=== PATIENT | female | born 1970 | race Caucasian/White ===

== ENCOUNTER 2018-03-13 17:53 | Emergency (ER) | payer BC ==
[~2018-03-13] VITALS: Ht 167.6 cm; Wt 100.0 kg
[~2018-03-13 17:53] MED LIST: ARIP10TA15 PO; CALC-793 PO; DULO60CA34 PO; LEVE250T4 PO; LORA1TAB PO; OXYB5TAB11 PO; PANT-47 PO; PANT40TA4 PO; THY60T PO; [UNRECOGNIZED DRUG - CODE] IV
[2018-03-13] MEDS ORDERED: MORPHINE 2MG in 2ml NS syringe IV PRN (19:15)
[2018-03-13] MEDS ORDERED: morphine 4 MG/ML inj SYRINge IV ONE ×3 (19:15→21:55)
[2018-03-13] MEDS ORDERED: ondansetron/PF 4mg/2ml inj IV ONE (19:45)
[2018-03-13] MEDS ORDERED: fentaNYL/PF 50MCG/1 ML 2ML syringe IV ONE (19:45)
[2018-03-13] MEDS ORDERED: normal saline 1000ML IV soln IVB ONE (19:45)
[2018-03-13] MEDS ORDERED: proCHLORperazine 10 MG/2 ml inj IV ONE (19:45)
[2018-03-13] MEDS ORDERED: methylPREDNISolone sod succ 125mg/2ml vial IV ONE (19:45)
[2018-03-13] MEDS ORDERED: HYDROmorphone 2mg tablet PO ONE (19:45)
[2018-03-13] MEDS ORDERED: diphenhydrAMINE 50 mg/ml inj IV ONE (19:45)
[2018-03-13] MEDS ORDERED: METHYLPREDNISOLONE SOD SUCC IV ONE (20:10)
[2018-03-13] MEDS ORDERED: NORMAL SALINE IV ONE (20:10)
[2018-03-13 20:22] LABS: BASOPHILS % (AUTO) 0.1 % (0-1); EOSINOPHILS # (AUTO) 0.1 X10'3 (0-0.9); EOSINOPHILS % (AUTO) 0.8 % (0-6); HEMATOCRIT 33.3 % (35.0-45.0); LYMPHOCYTES % (AUTO) 9.2 % (21-51); MEAN CORPUSCULAR HEMOGLOBIN 24.3 PG (27.0-31.0); MEAN CORPUSCULAR VOLUME 73.8 FL (78-98); MEAN PLATELET VOLUME 9.3 FL (7.4-10.4); MONOCYTES # (AUTO) 0.9 X10'3 (0-0.9); MONOCYTES % (AUTO) 7.7 % (2-12); NEUTROPHILS # (AUTO) 9.3 X10'3 (1.8-7.7); NEUTROPHILS % (AUTO) 82.2 % (42-75); PLATELET COUNT 331 X10'3 (140-440); RED BLOOD COUNT 4.51 X10'6 (4.20-5.60); RED CELL DISTRIBUTION WIDTH 16.2 % (11.5-14.5); WHITE BLOOD COUNT 11.3 X10'3 (4.5-11.0)
[2018-03-13 20:34] LABS: INR 0.9 INR; PARTIAL THROMBOPLASTIN TIME 26 SECONDS (22-32); PROTHROMBIN TIME 9.6 SECONDS (9.0-12.0)
[2018-03-13 20:37] LABS: ALANINE AMINOTRANSFERASE 30 U/L (12-78); ALBUMIN 3.6 G/DL (3.4-5.0); ALKALINE PHOSPHATASE 92 IU/L (46-116); ANION GAP 7 (8-16); ASPARTATE AMINO TRANSFERASE 19 U/L (10-37); BILIRUBIN,TOTAL 0.2 MG/DL (0.1-1.0); BLOOD UREA NITROGEN 12 MG/DL (7-18); BUN/CREATININE RATIO 13.6 (6.6-38.0); CALCIUM 8.5 MG/DL (8.5-10.1); CHLORIDE 104 MMOL/L (99-107); CREATININE 0.88 MG/DL (0.40-0.90); GLUCOSE 109 MG/DL (70-104); MAGNESIUM 2.1 MG/DL (1.5-2.4); POTASSIUM 4.1 MMOL/L (3.5-5.1); SODIUM 139 MMOL/L (135-145); TOTAL CARBON DIOXIDE 27.7 MMOL/L (24-32); TOTAL PROTEIN 7.2 G/DL (6.4-8.2); eGFR 69 ML/MIN
[2018-03-13] MEDS ORDERED: PRED20TA PO (21:33)
[2018-03-13] MEDS ORDERED: [UNRECOGNIZED DRUG - CODE] IV (21:33)
[2018-03-13] MEDS ORDERED: PANT-47 PO (21:33)
[2018-03-13] MEDS ORDERED: ketorolac trometh. 30mg/ml inj. IV ONE (21:55)
[2018-03-13] MEDS ORDERED: SUMAtriptan succ. 6 MG/0.5ml vial SQ ONE (21:55)
[2018-03-13 22:14] LABS: CLARITY,URINE CLEAR (Clear); COLOR,URINE YELLOW (Yellow); GLUCOSE, URINE 100 mg/dl (Neg); KETONES,URINE NEGATIVE (Neg); LEUKOCYTE ESTERASE ,URINE TRACE (Neg); NITRITES, URINE NEGATIVE (Neg); OCCULT BLOOD,URINE NEGATIVE (Neg); PH,URINE 6.5 (4.8-8.0); PROTEIN,URINE NEGATIVE (Neg); UA COLLECTION TYPE CLN CATCH MIDSTREAM; UROBILINOGEN,URINE 0.2 E.U/dL (0.2-1.0)
[2018-03-13 22:23] LABS: WBC,URINE 0-4 /HPF (0-4)
[2018-03-13 22:24] LABS: BACTERIA,URINE 1+ /HPF (Neg); MUCUS STRANDS FEW /LPF (Neg); RBC,URINE 0-2 /HPF (0-2); SQUAMOUS EPITHELIAL CELL,UR MODERATE /LPF (FEW); YEAST FEW /HPF (NEGATIVE)
[2018-03-13 23:02] VITALS: BP 136/69
== END 2018-03-13 23:08 | disposition home or self-care (01) ==
LOC: ER 17:53
DX: G35 Multiple sclerosis (principal); G43.909 Migraine, unspecified, not intractable, without status migrainosus; Z79.899 Other long term (current) drug therapy
CPT/HCPCS: 36415; 80053; 81001; 83605; 83735; 85025; 85610; 85651; 85730; 87040; 87077; 87088; 87186; 96372; 96374; 96375; 96376; 99284; J1200; J1885; J2270; J2405; J2930; J3010; J3030; J7030; J0780

== ENCOUNTER 2019-08-09 14:12 | Inpatient (IN) | payer BC ==
[~2019-08-09] VITALS: Ht 167.6 cm; Wt 109.0 kg
[~2019-08-09 14:12] MED LIST changes: -LEVE250T4 PO; -OXYB5TAB11 PO; +OXYB5TAB16 PO; -PANT-47 PO; +ZOLP10TA5 PO; -[UNRECOGNIZED DRUG - CODE] IV
[2019-08-09] MEDS ORDERED: methylPREDNISolone sod succ 125mg/2ml vial IV ONE (15:45)
[2019-08-09] MEDS ORDERED: ondansetron/PF 4mg/2ml inj IV ONE ×2 (15:45→16:50)
[2019-08-09] MEDS ORDERED: HYDROmorphone 1 mg/ml syringe IV ONE ×3 (15:45→19:15)
[2019-08-09] MEDS ORDERED: normal saline 1000ML IV soln IVB ONE (15:45)
--- NOTE | 2019-08-09 16:10 | NUR ---
PT MOVED FROM WC2 TO BED 16 VIA WHEELCHAIR BY ROSALBA BRIONES
[2019-08-09 16:14] LABS: BASOPHILS # (AUTO) 0.1 X10'3 (0-0.2); BASOPHILS % (AUTO) 1.4 % (0-1); EOSINOPHILS # (AUTO) 0.4 X10'3 (0-0.9); EOSINOPHILS % (AUTO) 5.4 % (0-6); HEMATOCRIT 37.2 % (35.0-45.0); HEMOGLOBIN 12.1 g/dl (12.0-16.0); LYMPHOCYTES # (AUTO) 1.5 X10'3 (1.1-4.8); LYMPHOCYTES % (AUTO) 21.2 % (21-51); MEAN CORPUSCULAR HEMOGLOBIN 24.8 PG (27.0-31.0); MEAN CORPUSCULAR HGB CONC 32.4 g/dL (33.0-36.5); MEAN CORPUSCULAR VOLUME 76.4 FL (78-98); MEAN PLATELET VOLUME 8.8 FL (7.4-10.4); MONOCYTES # (AUTO) 0.7 X10'3 (0-0.9); MONOCYTES % (AUTO) 10.2 % (2-12); NEUTROPHILS # (AUTO) 4.4 X10'3 (1.8-7.7); NEUTROPHILS % (AUTO) 61.8 % (42-75); PLATELET COUNT 363 X10'3 (140-440); RED BLOOD COUNT 4.87 X10'6 (4.20-5.60); RED CELL DISTRIBUTION WIDTH 15.7 % (11.5-14.5); WHITE BLOOD COUNT 7.2 X10'3 (4.5-11.0)
--- NOTE | 2019-08-09 16:16 | NUR ---
PT AMBULATORY TO BATHROOM WITH STEADY GAIT TO PROVIDE URINE SAMPLE, PT ALSO ASKING FOR GLASS OF WATER.
[2019-08-09 16:37] LABS: ANION GAP 7 (8-16); BLOOD UREA NITROGEN 12 MG/DL (7-18); BUN/CREATININE RATIO 15.8 (6.6-38.0); CHLORIDE 104 MMOL/L (99-107); CREATININE 0.76 MG/DL (0.40-0.90); GLUCOSE 102 MG/DL (70-104); POTASSIUM 3.9 MMOL/L (3.5-5.1); SODIUM 139 MMOL/L (135-145); TOTAL CARBON DIOXIDE 28.3 MMOL/L (24-32)
[2019-08-09 16:38] LABS: ALANINE AMINOTRANSFERASE 35 U/L (12-78); ALBUMIN 3.7 G/DL (3.4-5.0); ALBUMIN/GLOBULIN RATIO 1.1 (1.1-1.5); ALKALINE PHOSPHATASE 99 IU/L (46-116); ASPARTATE AMINO TRANSFERASE 25 U/L (10-37); BILIRUBIN,TOTAL 0.2 MG/DL (0.1-1.0); CALCIUM 8.8 MG/DL (8.5-10.1); TOTAL PROTEIN 7.1 G/DL (6.4-8.2); eGFR 82 ML/MIN
[2019-08-09] MEDS ORDERED: morphine 4 MG/ML inj SYRINge IV ONE (16:50)
[2019-08-09 16:59] LABS: CLARITY,URINE CLOUDY (Clear); COLOR,URINE RED (Yellow); GLUCOSE, URINE NEGATIVE (Neg); KETONES,URINE NEGATIVE (Neg); LEUKOCYTE ESTERASE ,URINE SMALL (Neg); NITRITES, URINE NEGATIVE (Neg); OCCULT BLOOD,URINE LARGE (Neg); PH,URINE 6.5 (4.8-8.0); PROTEIN,URINE 30 mg/dl (Neg); UROBILINOGEN,URINE 0.2 E.U/dL (0.2-1.0)
[2019-08-09] MEDS ORDERED: magnesium Cl slow-release 64mg tablet PO PRN (17:00)
[2019-08-09] MEDS ORDERED: HYDROmorphone inj. 0.5 MG/0.5 ML DISP.SYRIN IV PRN (17:00)
[2019-08-09] MEDS ORDERED: magnesium 2GM in 50ml NS 50 ML IV PRN (17:00)
[2019-08-09] MEDS ORDERED: HYDROcodone/acetaminophen 10/325mg tab PO PRN (17:00)
[2019-08-09] MEDS ORDERED: acetaminophen 325mg tablet PO PRN ×2 (17:00)
[2019-08-09] MEDS ORDERED: potassium CL 10mEq/100ml bag 100 ML IV PRN ×2 (17:00)
[2019-08-09] MEDS ORDERED: ondansetron/PF 4mg/2ml inj IV PRN (17:00)
[2019-08-09] MEDS ORDERED: magnesium hydroxide 30ml (MOM) UD suspension PO PRN (17:00)
[2019-08-09] MEDS ORDERED: HYDROcodone/acetaminophen 5mg/325mg tablet PO PRN (17:00)
[2019-08-09] MEDS ORDERED: magnesium 4gm in 100ml NS 100 ML IV PRN (17:00)
[2019-08-09] MEDS ORDERED: potassium Cl 20 mEq SR tablet PO PRN ×2 (17:00)
[2019-08-09] MEDS ORDERED: mag hydrox/Alum hydrox/simeth 30ml oral suspension PO PRN (17:00)
[2019-08-09 17:03] LABS: UA COLLECTION TYPE CLN CATCH MIDSTREAM
[2019-08-09] MEDS ORDERED: methylPREDNISolone sod succ 1,000 MG in normal saline 100ml IV soln 100 ML IV ONE (17:05)
[2019-08-09 17:12] LABS: BACTERIA,URINE FEW /HPF (Neg); RBC,URINE TNTC /HPF (0-2); SQUAMOUS EPITHELIAL CELL,UR FEW /LPF (FEW)
[2019-08-09 17:13] LABS: WBC CLUMPS,URINE FEW /HPF (NEGATIVE)
[2019-08-09] MEDS ORDERED: CHOL200052 PO (17:13)
[2019-08-09] MEDS ORDERED: RANI150T8 PO (17:18)
--- NOTE | 2019-08-09 17:22 | NUR ---
Patient in room . I have received report from Jo-Ann in the ED and had the opportunity to ask questions and assume patient care.
--- NOTE | 2019-08-09 17:47 | NUR ---
PAGER ID: [phone] MESSAGE: Latasha Gamez, Ms. Terrazas in [phone] is itching quite a bit. May we have something for itching? thank you Mary #[phone]
[2019-08-09 18:08] VITALS: BP 156/93
--- NOTE | 2019-08-09 18:20 | NUR ---
Problems reprioritized. Patient report given, questions answered & plan of care reviewed with Shayy.
--- NOTE | 2019-08-09 18:54 | NUR ---
paged Vera for more pain medication and benadryl for itching. no response. paged a third time.
[2019-08-09] MEDS: normal saline 1000ml 1,000 ML IV SCH (19:14)
[2019-08-09] MEDS ORDERED: oxyCODONE/APAP 10/325mg tablet PO PRN (19:15)
[2019-08-09] MEDS ORDERED: CADD PCA waste documentation MC PRN (19:15)
[2019-08-09] MEDS ORDERED: naloxone 0.4 mg/ml inj IV PRN (19:15)
[2019-08-09] MEDS ORDERED: diphenhydrAMINE 25mg capsule PO PRN (19:15)
[2019-08-09] MEDS ORDERED: HYDROmorphone/NS 1 mg/ml CADD 50 ML IV SCH (19:15)
--- NOTE | 2019-08-09 19:15 | NUR ---
halley at bedside orders received for pain control, itching and home medications. to start cadd if percocet and IVP dilaudid ineffective
[2019-08-09] MEDS: sennosides/docusate sodium tablet PO SCH (19:57)
[2019-08-09] MEDS ORDERED: methylPREDNISolone sod succ 1,000 MG in normal saline 100ml IV soln 100 ML IV SCH (20:41)
[2019-08-09] MEDS: docusate sod 100mg capsule PO SCH (21:19)
[2019-08-09] MEDS: zolpidem 5mg tablet PO SCH (21:24)
[2019-08-09] MEDS: LORazepam 1 MG tablet PO PRN (21:45)
[2019-08-09 22:00] VITALS: BP 155/95
[2019-08-09] MEDS: HYDROmorphone 1 mg/ml syringe IV PRN (23:03)
--- NOTE | 2019-08-09 23:07 | NUR ---
patient starting to get pain in legs. too early for pain meds. checked last admission and found 2 tabs percocet every [address] masters ok'd orders for increased percocet. dilaudid given.
[2019-08-09] MEDS: hydrOXYzine 25 MG tablet PO PRN (23:29)
[2019-08-09] MEDS: oxyCODONE/APAP 10/325mg tablet PO PRN (23:30)
[2019-08-10] MEDS: HYDROmorphone 1 mg/ml syringe IV PRN ×5 (03:58→22:09)
[2019-08-10] MEDS: hydrOXYzine 25 MG tablet PO PRN ×2 (05:37→13:30)
[2019-08-10] MEDS: oxyCODONE/APAP 10/325mg tablet PO PRN ×4 (05:37→19:27)
[2019-08-10 06:00] VITALS: BP 173/79
--- NOTE | 2019-08-10 06:26 | NUR ---
reported to days. noted pt resting and pain more controlled this am. pt watching TV.
[2019-08-10 06:28] LABS: BASOPHILS # (AUTO) 0.1 X10'3 (0-0.2); BASOPHILS % (AUTO) 0.7 % (0-1); EOSINOPHILS % (AUTO) 0 % (0-6); HEMATOCRIT 36.8 % (35.0-45.0); HEMOGLOBIN 12.1 g/dl (12.0-16.0); LYMPHOCYTES # (AUTO) 0.6 X10'3 (1.1-4.8); LYMPHOCYTES % (AUTO) 5.5 % (21-51); MEAN CORPUSCULAR HEMOGLOBIN 24.9 PG (27.0-31.0); MEAN CORPUSCULAR HGB CONC 32.9 g/dL (33.0-36.5); MEAN CORPUSCULAR VOLUME 75.5 FL (78-98); MEAN PLATELET VOLUME 8.6 FL (7.4-10.4); MONOCYTES % (AUTO) 0.4 % (2-12); NEUTROPHILS # (AUTO) 10.5 X10'3 (1.8-7.7); NEUTROPHILS % (AUTO) 93.4 % (42-75); PLATELET COUNT 352 X10'3 (140-440); RED BLOOD COUNT 4.88 X10'6 (4.20-5.60); RED CELL DISTRIBUTION WIDTH 15.9 % (11.5-14.5); WHITE BLOOD COUNT 11.2 X10'3 (4.5-11.0)
--- NOTE | 2019-08-10 06:56 | NUR ---
Patient in room ORTHO 4016. I have received report from Mehreen JUNG and had the opportunity to ask questions .
[2019-08-10 07:01] LABS: ALBUMIN 3.5 G/DL (3.4-5.0); ANION GAP 9 (8-16); BLOOD UREA NITROGEN 10 MG/DL (7-18); BUN/CREATININE RATIO 10.9 (6.6-38.0); CALCIUM 8.3 MG/DL (8.5-10.1); CHLORIDE 104 MMOL/L (99-107); CREATININE 0.92 MG/DL (0.40-0.90); GLUCOSE 163 MG/DL (70-104); MAGNESIUM 2.3 MG/DL (1.5-2.4); POTASSIUM 4.5 MMOL/L (3.5-5.1); SODIUM 139 MMOL/L (135-145); TOTAL CARBON DIOXIDE 26.5 MMOL/L (24-32); eGFR 65 ML/MIN
[2019-08-10] MEDS: K and/or MAG REPLACEMENT MC SCH (07:10)
[2019-08-10] MEDS: methylPREDNISolone sod succ 1,000 MG in normal saline 100ml IV soln 100 ML IV SCH (08:20)
[2019-08-10] MEDS: docusate sod 100mg capsule PO SCH ×2 (08:20→19:27)
[2019-08-10] MEDS: duloxetine 30mg CAPSULE.DR PO SCH (08:20)
[2019-08-10] MEDS: famotidine 20mg tablet PO SCH (08:21)
[2019-08-10] MEDS: sennosides/docusate sodium tablet PO SCH ×2 (08:21→19:26)
[2019-08-10] MEDS: vitamin D (cholecalciferol) 1,000 unit tablet PO SCH (08:22)
[2019-08-10] MEDS: enoxaparin 40mg/0.4ml syringe SQ SCH (08:23)
[2019-08-10] MEDS: LORazepam 1 MG tablet PO PRN ×2 (08:38→18:54)
[2019-08-10] MEDS: thyroid, pork 30mg tablet PO SCH (09:59)
--- NOTE | 2019-08-10 10:12 | NUR ---
PAGER ID: [phone] MESSAGE: Mehreen [phone] Sonya Velasco in [id number]- pain is not controlled, can we increase the frequency of the Percocet from Q6 to Q4? They never started the CADD last night. CADD would prevent us from using other meds for breakthrough pain
[2019-08-10 10:28] VITALS: BP 128/76
[2019-08-10] MEDS ORDERED: methylPREDNISolone sod succ 125mg/2ml vial IV SCH (11:00)
--- NOTE | 2019-08-10 12:06 | NUR ---
report given to Mehreen JUNG.
--- NOTE | 2019-08-10 15:51 | NUR ---
Patient in room ORTHO 4016. I have received report from HEMANT JUNG and had the opportunity to ask questions and assume patient care.
[2019-08-10 16:00] VITALS: BP 145/108
[2019-08-10 18:00] VITALS: BP 145/108
--- NOTE | 2019-08-10 18:18 | NUR ---
Problems reprioritized. Patient report given, questions answered & plan of care reviewed with Nakita Adorno RN.
[2019-08-10] MEDS: zolpidem 5mg tablet PO SCH (19:33)
[2019-08-10 22:00] VITALS: BP 156/78
[2019-08-10] MEDS: baclofen 10mg tablet PO PRN (22:22)
[2019-08-11] MEDS: oxyCODONE/APAP 10/325mg tablet PO PRN ×5 (02:16→22:00)
[2019-08-11] MEDS: HYDROmorphone 1 mg/ml syringe IV PRN ×2 (05:10→14:40)
[2019-08-11 05:41] LABS: BASOPHILS % (AUTO) 0.1 % (0-1); EOSINOPHILS % (AUTO) 0 % (0-6); HEMATOCRIT 33.8 % (35.0-45.0); HEMOGLOBIN 11.1 g/dl (12.0-16.0); LYMPHOCYTES # (AUTO) 0.8 X10'3 (1.1-4.8); LYMPHOCYTES % (AUTO) 3.4 % (21-51); MEAN CORPUSCULAR HEMOGLOBIN 24.8 PG (27.0-31.0); MEAN CORPUSCULAR HGB CONC 32.9 g/dL (33.0-36.5); MEAN CORPUSCULAR VOLUME 75.4 FL (78-98); MEAN PLATELET VOLUME 8.9 FL (7.4-10.4); MONOCYTES # (AUTO) 1.9 X10'3 (0-0.9); MONOCYTES % (AUTO) 7.9 % (2-12); NEUTROPHILS # (AUTO) 20.8 X10'3 (1.8-7.7); NEUTROPHILS % (AUTO) 88.6 % (42-75); PLATELET COUNT 371 X10'3 (140-440); RED BLOOD COUNT 4.48 X10'6 (4.20-5.60); WHITE BLOOD COUNT 23.5 X10'3 (4.5-11.0)
[2019-08-11 05:42] LABS: ALBUMIN 3.2 G/DL (3.4-5.0); ANION GAP 5 (8-16); BLOOD UREA NITROGEN 13 MG/DL (7-18); BUN/CREATININE RATIO 16.9 (6.6-38.0); CALCIUM 8.7 MG/DL (8.5-10.1); CHLORIDE 106 MMOL/L (99-107); CREATININE 0.77 MG/DL (0.40-0.90); GLUCOSE 154 MG/DL (70-104); MAGNESIUM 2.3 MG/DL (1.5-2.4); POTASSIUM 4.4 MMOL/L (3.5-5.1); SODIUM 141 MMOL/L (135-145); TOTAL CARBON DIOXIDE 29.6 MMOL/L (24-32); eGFR 80 ML/MIN
[2019-08-11 06:00] VITALS: BP 135/61
--- NOTE | 2019-08-11 06:31 | NUR ---
Problems reprioritized. Patient report given, questions answered & plan of care reviewed with FABIANA Verde.
[2019-08-11] MEDS ORDERED: oxyCODONE/APAP 10/325mg tablet PO PRN (07:30)
[2019-08-11] MEDS: famotidine 20mg tablet PO SCH (07:43)
[2019-08-11] MEDS: sennosides/docusate sodium tablet PO SCH ×2 (07:43→20:26)
[2019-08-11] MEDS: docusate sod 100mg capsule PO SCH ×2 (07:43→20:26)
[2019-08-11] MEDS: duloxetine 30mg CAPSULE.DR PO SCH (07:43)
[2019-08-11] MEDS: thyroid, pork 30mg tablet PO SCH (07:44)
[2019-08-11] MEDS: vitamin D (cholecalciferol) 1,000 unit tablet PO SCH (07:44)
[2019-08-11] MEDS: enoxaparin 40mg/0.4ml syringe SQ SCH ×2 (07:45→08:03)
[2019-08-11] MEDS: hydrOXYzine 25 MG tablet PO PRN ×2 (07:46→17:31)
[2019-08-11] MEDS: methylPREDNISolone sod succ 1,000 MG in normal saline 100ml IV soln 100 ML IV SCH (07:49)
[2019-08-11] MEDS: K and/or MAG REPLACEMENT MC SCH (08:00)
[2019-08-11 10:00] VITALS: BP 137/83
[2019-08-11] MEDS: baclofen 10mg tablet PO PRN (12:15)
[2019-08-11] MEDS: LORazepam 1 MG tablet PO PRN (13:43)
[2019-08-11] MEDS: magnesium hydroxide 30ml (MOM) UD suspension PO PRN (13:44)
[2019-08-11 18:00] VITALS: BP 175/92
--- NOTE | 2019-08-11 18:10 | NUR ---
Patient in room ORTHO 4016. I have received report from Mehreen JUNG and had the opportunity to ask questions and assume patient care.
[2019-08-11] MEDS: normal saline 1000ml 1,000 ML IV SCH (19:14)
[2019-08-11] MEDS: zolpidem 5mg tablet PO SCH (20:26)
[2019-08-11 22:00] VITALS: BP 148/58
[2019-08-12] MEDS: oxyCODONE/APAP 10/325mg tablet PO PRN ×2 (04:43→09:17)
[2019-08-12] MEDS: magnesium hydroxide 30ml (MOM) UD suspension PO PRN (04:43)
[2019-08-12 05:28] LABS: BASOPHILS % (AUTO) 0.1 % (0-1); EOSINOPHILS % (AUTO) 0 % (0-6); HEMATOCRIT 32.2 % (35.0-45.0); HEMOGLOBIN 10.4 g/dl (12.0-16.0); LYMPHOCYTES # (AUTO) 1.4 X10'3 (1.1-4.8); LYMPHOCYTES % (AUTO) 7.6 % (21-51); MEAN CORPUSCULAR HEMOGLOBIN 24.9 PG (27.0-31.0); MEAN CORPUSCULAR HGB CONC 32.4 g/dL (33.0-36.5); MEAN PLATELET VOLUME 9.1 FL (7.4-10.4); MONOCYTES # (AUTO) 1.2 X10'3 (0-0.9); MONOCYTES % (AUTO) 6.4 % (2-12); NEUTROPHILS # (AUTO) 15.9 X10'3 (1.8-7.7); NEUTROPHILS % (AUTO) 85.9 % (42-75); PLATELET COUNT 330 X10'3 (140-440); RED BLOOD COUNT 4.19 X10'6 (4.20-5.60); RED CELL DISTRIBUTION WIDTH 16.1 % (11.5-14.5); WHITE BLOOD COUNT 18.6 X10'3 (4.5-11.0)
[2019-08-12 05:44] LABS: ALBUMIN 3.1 G/DL (3.4-5.0); ANION GAP 4 (8-16); BLOOD UREA NITROGEN 11 MG/DL (7-18); BUN/CREATININE RATIO 13.9 (6.6-38.0); CALCIUM 8.5 MG/DL (8.5-10.1); CHLORIDE 107 MMOL/L (99-107); CREATININE 0.79 MG/DL (0.40-0.90); GLUCOSE 127 MG/DL (70-104); MAGNESIUM 2.4 MG/DL (1.5-2.4); SODIUM 143 MMOL/L (135-145); TOTAL CARBON DIOXIDE 31.9 MMOL/L (24-32); eGFR 78 ML/MIN
[2019-08-12 06:00] VITALS: BP 136/78
--- NOTE | 2019-08-12 06:37 | NUR ---
Problems reprioritized. Patient report given, questions answered & plan of care reviewed with Mehreen JUNG.
[2019-08-12] MEDS: K and/or MAG REPLACEMENT MC SCH (08:00)
[2019-08-12] MEDS: methylPREDNISolone sod succ 1,000 MG in normal saline 100ml IV soln 100 ML IV SCH (09:15)
[2019-08-12] MEDS: duloxetine 30mg CAPSULE.DR PO SCH (09:16)
[2019-08-12] MEDS: docusate sod 100mg capsule PO SCH ×2 (09:16→19:23)
[2019-08-12] MEDS: hydrOXYzine 25 MG tablet PO PRN ×2 (09:16→17:59)
[2019-08-12] MEDS: famotidine 20mg tablet PO SCH (09:17)
[2019-08-12] MEDS: sennosides/docusate sodium tablet PO SCH ×2 (09:17→19:23)
[2019-08-12] MEDS: vitamin D (cholecalciferol) 1,000 unit tablet PO SCH (09:18)
[2019-08-12] MEDS: baclofen 10mg tablet PO PRN (09:18)
[2019-08-12] MEDS: enoxaparin 40mg/0.4ml syringe SQ SCH (09:18)
[2019-08-12] MEDS: thyroid, pork 30mg tablet PO SCH (09:18)
[2019-08-12 10:19] VITALS: BP 158/83
[2019-08-12] MEDS ORDERED: PRED10TA23 PO (14:01)
[2019-08-12] MEDS: LORazepam 1 MG tablet PO PRN (14:08)
[2019-08-12 18:00] VITALS: BP 172/87
--- NOTE | 2019-08-12 18:38 | NUR ---
Assumed care of patient with verbal report from Mehreen JUNG. Patient resting comfortably at this time. Solumedrol infusing and patient to be discharged home when infusion complete. Awaiting on family for transport home after dischg.
[2019-08-12] MEDS ORDERED: methylPREDNISolone sod succ 1,000 MG in normal saline 100ml IV soln 100 ML IV SCH (19:00)
--- NOTE | 2019-08-12 19:25 | NUR ---
SOLUMEDROL INFUSION COMPLETE. PIV IN R HAND DC'D WITH CATH TIP NARROW AND INTACT. GIVEN SENOCOT AND COLACE AND IS WAITING TRANSPORTATION. DENIES ANY DISCOMFORT AT THIS TIME.
--- NOTE | 2019-08-12 19:37 | NUR ---
PATIENT DISCHGED, ALL BELONGINGS WITH PATIENT. DENIES ANY COMPLAINTS OR NEEDS.
== END 2019-08-12 19:30 | disposition home or self-care (01) | DRG 60 ==
LOC: ER 14:14 → ORTHO 4S 16:58 → CANBEDREQ 17:02 → CMPBEDREQ 19:44
PROVIDERS: ADMIT Hospitalist; ATTEND Internal Medicine
DX: G35 Multiple sclerosis (principal); E03.9 Hypothyroidism, unspecified; F32.9 Major depressive disorder, single episode, unspecified; G40.909 Epilepsy, unspecified, not intractable, without status epilepticus; D72.829 Elevated white blood cell count, unspecified; T38.0X5A Adverse effect of glucocorticoids and synthetic analogues, initial encounter; F41.9 Anxiety disorder, unspecified; Z82.49 Family history of ischemic heart disease and other diseases of the circulatory system; Z83.3 Family history of diabetes mellitus; Z79.899 Other long term (current) drug therapy; Y92.238 Other place in hospital as the place of occurrence of the external cause
CPT/HCPCS: 36415; 80048; 80053; 81001; 83735; 84443; 85025; 87081; 87088; 93005; G0378; J1170; J1650; J2270; J2405; J2930; J7030; Q0163; Z7610

== ENCOUNTER 2020-02-11 22:43 | Emergency (ER) | payer BC ==
[~2020-02-11] VITALS: Ht 170.2 cm; Wt 93.2 kg
[~2020-02-11 22:43] MED LIST changes: -ARIP10TA15 PO; -CALC-793 PO; +CHOL200052 PO; +DOXY-224 PO; -OXYB5TAB16 PO; +OXYC10TA47 PO; -PANT40TA4 PO; -ZOLP10TA5 PO
[2020-02-11] MEDS ORDERED: ketorolac trometh. 30mg/ml inj. IV ONE (22:50)
[2020-02-11] MEDS ORDERED: SUMAtriptan succ. 6 MG/0.5ml vial SQ ONE (22:50)
[2020-02-11] MEDS ORDERED: dexamethasone 4mg/ml inj IV ONE (22:50)
[2020-02-11] MEDS ORDERED: haloperidol lactate 5mg/ml inj IM ONE (22:50)
[2020-02-11] MEDS ORDERED: diphenhydrAMINE 50 mg/ml inj IV ONE (22:50)
[2020-02-11] MEDS ORDERED: aspirin 325mg tablet PO ONE (22:50)
[2020-02-11] MEDS ORDERED: normal saline 1000ml 1,000 ML IV ONE (22:50)
[2020-02-11] MEDS ORDERED: proCHLORperazine 10 MG/2 ml inj IV ONE (22:50)
[2020-02-11 22:51] VITALS: BP 169/93
[2020-02-11] MEDS ORDERED: magnesium 2GM in 50ml NS 50 ML IV ONE (23:20)
[2020-02-11] MEDS ORDERED: SUMA100T PO (23:29)
[2020-02-11] MEDS ORDERED: PROC-8 PO (23:32)
[2020-02-11] MEDS ORDERED: SUMAtriptan 25 MG tablet PO ONE (23:50)
[2020-02-11] MEDS ORDERED: proCHLORperazine 10mg tablet PO ONE (23:50)
== END 2020-02-11 23:54 | disposition home or self-care (01) ==
LOC: ER 22:43
DX: R51 Headache (principal); G35 Multiple sclerosis; F41.9 Anxiety disorder, unspecified; F32.9 Major depressive disorder, single episode, unspecified; Z72.89 Other problems related to lifestyle; Z86.69 Personal history of other diseases of the nervous system and sense organs; Z79.899 Other long term (current) drug therapy
CPT/HCPCS: 96372; 96374; 96375; 99284; J0780; J1100; J1200; J1630; J1885; J7030; J3030; Q0164

== ENCOUNTER 2020-06-27 09:21 | Emergency (ER) | payer BC ==
[~2020-06-27] VITALS: Ht 170.2 cm; Wt 100.0 kg
[~2020-06-27 09:21] MED LIST changes: +PROC-8 PO
--- NOTE | 2020-06-27 11:55 | NUR ---
COVID NEG NOTIFIED BY REYMUNDO Russell
[2020-06-27 11:56] LABS: BASOPHILS # (AUTO) 0.1 X10'3 (0-0.2); BASOPHILS % (AUTO) 1.4 % (0-1); EOSINOPHILS # (AUTO) 0.7 X10'3 (0-0.9); EOSINOPHILS % (AUTO) 7.2 % (0-6); HEMATOCRIT 35.4 % (35.0-45.0); HEMOGLOBIN 11.1 g/dl (12.0-16.0); LYMPHOCYTES # (AUTO) 1.2 X10'3 (1.1-4.8); LYMPHOCYTES % (AUTO) 12.4 % (21-51); MEAN CORPUSCULAR HEMOGLOBIN 21.8 PG (27.0-31.0); MEAN CORPUSCULAR HGB CONC 31.2 g/dL (33.0-36.5); MEAN CORPUSCULAR VOLUME 69.8 FL (78-98); MEAN PLATELET VOLUME 8.4 FL (7.4-10.4); MONOCYTES # (AUTO) 0.8 X10'3 (0-0.9); MONOCYTES % (AUTO) 8.1 % (2-12); NEUTROPHILS # (AUTO) 6.9 X10'3 (1.8-7.7); NEUTROPHILS % (AUTO) 70.9 % (42-75); PLATELET COUNT 424 X10'3 (140-440); RED BLOOD COUNT 5.08 X10'6 (4.20-5.60); RED CELL DISTRIBUTION WIDTH 17.3 % (11.5-14.5); WHITE BLOOD COUNT 9.8 X10'3 (4.5-11.0)
[2020-06-27 12:08] LABS: ALANINE AMINOTRANSFERASE 41 U/L (12-78); ALBUMIN 3.9 G/DL (3.4-5.0); ALBUMIN/GLOBULIN RATIO 1.2 (1.1-1.5); ALKALINE PHOSPHATASE 86 IU/L (46-116); ANION GAP 5 (8-16); ASPARTATE AMINO TRANSFERASE 27 U/L (10-37); BILIRUBIN,TOTAL 0.3 MG/DL (0.1-1.0); BLOOD UREA NITROGEN 10 MG/DL (7-18); CALCIUM 9.1 MG/DL (8.5-10.1); CHLORIDE 103 MMOL/L (99-107); CREATININE 0.83 MG/DL (0.40-0.90); GLUCOSE 108 MG/DL (70-104); MAGNESIUM 2.1 MG/DL (1.5-2.4); SODIUM 134 MMOL/L (135-145); TOTAL CARBON DIOXIDE 26.3 MMOL/L (24-32); TOTAL PROTEIN 7.1 G/DL (6.4-8.2); eGFR 73 ML/MIN
[2020-06-27 12:20] LABS: ANISOCYTOSIS 1+; HYPOCHROMASIA 2+; MICROCYTOSIS 2+; PLATELET ESTIMATE NORMAL
[2020-06-27 12:21] LABS: POLYCHROMASIA FEW
[2020-06-27] MEDS ORDERED: normal saline 1000ML IV soln IVB ONE (12:35)
[2020-06-27] MEDS ORDERED: ondansetron/PF 4mg/2ml inj IV ONE (12:35)
[2020-06-27] MEDS ORDERED: morphine 4 MG/ML inj SYRINge IV PRN (12:35)
[2020-06-27] MEDS ORDERED: HYDR-4353 PO (13:27)
[2020-06-27 13:44] VITALS: BP 160/85
[2020-06-27 14:40] LABS: CLARITY,URINE SLIGHTLY CLOUDY (Clear); COLOR,URINE STRAW (Yellow); GLUCOSE, URINE NEGATIVE (Neg); KETONES,URINE NEGATIVE (Neg); LEUKOCYTE ESTERASE ,URINE TRACE (Neg); NITRITES, URINE NEGATIVE (Neg); OCCULT BLOOD,URINE NEGATIVE (Neg); PROTEIN,URINE NEGATIVE (Neg); UROBILINOGEN,URINE 0.2 E.U/dL (0.2-1.0)
[2020-06-27 14:42] LABS: UA COLLECTION TYPE CLN CATCH MIDSTREAM
[2020-06-27 14:46] LABS: URINE HCG NEGATIVE (NEG)
[2020-06-27 14:48] LABS: SQUAMOUS EPITHELIAL CELL,UR MODERATE /LPF (FEW); YEAST FEW /HPF (NEGATIVE)
[2020-06-27 14:49] LABS: BACTERIA,URINE FEW /HPF (Neg); RBC,URINE 0-2 /HPF (0-2); WBC,URINE 0-4 /HPF (0-4)
[2020-06-27] MEDS ORDERED: CEPH250T PO (15:11)
== END 2020-06-27 15:20 | disposition home or self-care (01) ==
LOC: ER 09:22
DX: N39.0 Urinary tract infection, site not specified (principal); R50.9 Fever, unspecified; Z20.828 Contact with and (suspected) exposure to other viral communicable diseases; F41.9 Anxiety disorder, unspecified; F32.9 Major depressive disorder, single episode, unspecified; Z86.69 Personal history of other diseases of the nervous system and sense organs; Z72.89 Other problems related to lifestyle; Z79.2 Long term (current) use of antibiotics; Z79.899 Other long term (current) drug therapy
CPT/HCPCS: 36415; 71045; 80053; 81001; 81025; 83605; 83735; 84145; 85025; 87040; 87088; 87635; 93005; 96361; 96374; 96375; 99285; C9803; J2270; J2405; J7030; 85008

== ENCOUNTER 2021-06-15 13:53 | Emergency (ER) | payer BC ==
[~2021-06-15] VITALS: Ht 165.1 cm; Wt 100.0 kg
[2021-06-15 14:59] LABS: BASOPHILS # (AUTO) 0.1 X10'3 (0-0.2); EOSINOPHILS # (AUTO) 0.1 X10'3 (0-0.9); EOSINOPHILS % (AUTO) 1.2 % (0-6); HEMATOCRIT 42.1 % (35.0-45.0); HEMOGLOBIN 14.8 g/dl (12.0-16.0); LYMPHOCYTES # (AUTO) 0.8 X10'3 (1.1-4.8); LYMPHOCYTES % (AUTO) 10.2 % (21-51); MEAN CORPUSCULAR HEMOGLOBIN 30.7 PG (27.0-31.0); MEAN CORPUSCULAR VOLUME 87.7 FL (78-98); MEAN PLATELET VOLUME 9.4 FL (7.4-10.4); MONOCYTES # (AUTO) 1.4 X10'3 (0-0.9); MONOCYTES % (AUTO) 17.5 % (2-12); NEUTROPHILS # (AUTO) 5.7 X10'3 (1.8-7.7); NEUTROPHILS % (AUTO) 70.1 % (42-75); PLATELET COUNT 283 X10'3 (140-440); RED BLOOD COUNT 4.81 X10'6 (4.20-5.60); RED CELL DISTRIBUTION WIDTH 12.2 % (11.5-14.5); WHITE BLOOD COUNT 8.1 X10'3 (4.5-11.0)
[2021-06-15 15:11] LABS: ALANINE AMINOTRANSFERASE 67 U/L (12-78); ALBUMIN 3.7 G/DL (3.4-5.0); ALBUMIN/GLOBULIN RATIO 1.1 (1.1-1.5); ALKALINE PHOSPHATASE 106 IU/L (46-116); ANION GAP 4 (8-16); ASPARTATE AMINO TRANSFERASE 34 U/L (10-37); BILIRUBIN,TOTAL 0.3 MG/DL (0.1-1.0); BLOOD UREA NITROGEN 15 MG/DL (7-18); BUN/CREATININE RATIO 17.4 (6.6-38.0); CALCIUM 8.7 MG/DL (8.5-10.1); CHLORIDE 98 MMOL/L (99-107); CREATININE 0.86 MG/DL (0.40-0.90); GLUCOSE 139 MG/DL (70-104); POTASSIUM 3.3 MMOL/L (3.5-5.1); SODIUM 125 MMOL/L (135-145); TOTAL CARBON DIOXIDE 22.6 MMOL/L (24-32); TOTAL PROTEIN 7.1 G/DL (6.4-8.2); eGFR 70 ML/MIN
[2021-06-15 15:22] LABS: TOTAL CELLS COUNTED 100
[2021-06-15 15:23] LABS: LARGE PLATELETS FEW; PLATELET ESTIMATE NORMAL
[2021-06-15] MEDS ORDERED: ringers solution, lactated 1000ml IV soln IV ONE ×2 (15:35→17:35)
[2021-06-15] MEDS ORDERED: CASIRIVIMAB/IMDEVIMAB inject. 10 ML in normal saline 100ml IV soln 100 ML IV ONE (16:00)
[2021-06-15 16:54] LABS: CLARITY,URINE CLOUDY (Clear); COLOR,URINE YELLOW (Yellow); GLUCOSE, URINE NEGATIVE (Neg); KETONES,URINE NEGATIVE (Neg); NITRITES, URINE NEGATIVE (Neg); OCCULT BLOOD,URINE NEGATIVE (Neg); PROTEIN,URINE NEGATIVE (Neg); UA COLLECTION TYPE CLN CATCH MIDSTREAM
[2021-06-15 16:55] LABS: LEUKOCYTE ESTERASE ,URINE MODERATE (Neg); UROBILINOGEN,URINE 0.2 E.U/dL (0.2-1.0)
[2021-06-15 17:00] LABS: BACTERIA,URINE 3+ /HPF (Neg); MUCUS STRANDS FEW /LPF (Neg); RBC,URINE 0-2 /HPF (0-2); SQUAMOUS EPITHELIAL CELL,UR MANY /LPF (FEW); WBC,URINE 50-100 /HPF (0-4)
[2021-06-15 17:01] LABS: TRANSITIONAL EPI CELLS,URINE FEW /HPF; YEAST FEW /HPF (NEGATIVE)
[2021-06-15] MEDS ORDERED: HYDROcodone/acetaminophen 5mg/325mg tablet PO ONE (17:35)
[2021-06-15] MEDS ORDERED: enoxaparin 40mg/0.4ml syringe SUBCUT SCH (17:55)
[2021-06-15] MEDS ORDERED: magnesium 2GM in 50ml NS 50 ML IV PRN (17:55)
[2021-06-15] MEDS ORDERED: magnesium Cl slow-release 64mg tablet PO PRN (17:55)
[2021-06-15] MEDS ORDERED: potassium Cl 40MEQ/1/2NS 520ml 520 ML IV PRN ×2 (17:55)
[2021-06-15] MEDS ORDERED: acetaminophen 325mg tablet PO PRN (17:55)
[2021-06-15] MEDS ORDERED: magnesium 4gm in 100ml NS 100 ML IV PRN (17:55)
[2021-06-15] MEDS ORDERED: potassium Cl 20 mEq SR tablet PO PRN ×2 (17:55)
[2021-06-15] MEDS ORDERED: ondansetron/PF 4mg/2ml inj IV PRN (17:55)
[2021-06-15] MEDS ORDERED: normal saline 1000ml 1,000 ML IV SCH (17:55)
[2021-06-15] MEDS ORDERED: DULO60CA65 PO (18:10)
[2021-06-15] MEDS ORDERED: ALBU8.5H17 IH (18:10)
[2021-06-15] MEDS ORDERED: METR60GE4 TOP (18:10)
[2021-06-15] MEDS ORDERED: METO-395 PO (18:10)
[2021-06-15] MEDS ORDERED: TERB250T4 PO (18:10)
[2021-06-15] MEDS ORDERED: LOSA100T57 PO (18:10)
[2021-06-15] MEDS ORDERED: HYDR25TA4 PO (18:10)
[2021-06-15] MEDS ORDERED: LINA145C PO (18:10)
--- NOTE | 2021-06-15 19:47 | NUR ---
patient given water and sodium draw pending. patient feels better is wanting to go home.
[2021-06-15] MEDS ORDERED: K and/or MAG REPLACEMENT MC SCH (20:00)
[2021-06-15 20:06] LABS: ALBUMIN 3.2 G/DL (3.4-5.0); ANION GAP 3 (8-16); BLOOD UREA NITROGEN 14 MG/DL (7-18); BUN/CREATININE RATIO 17.7 (6.6-38.0); CALCIUM 8.5 MG/DL (8.5-10.1); CHLORIDE 105 MMOL/L (99-107); CREATININE 0.79 MG/DL (0.40-0.90); GLUCOSE 99 MG/DL (70-104); POTASSIUM 3.9 MMOL/L (3.5-5.1); SODIUM 139 MMOL/L (135-145); TOTAL CARBON DIOXIDE 30.8 MMOL/L (24-32); eGFR 77 ML/MIN
[2021-06-15] MEDS ORDERED: dexamethasone sod phosphate 10mg/ml inj IV STA (20:54)
[2021-06-15] MEDS ORDERED: SUMAtriptan 5 mg Nasal Spray NS ONE (21:10)
[2021-06-15] MEDS ORDERED: RIZA10TA27 SL (21:13)
[2021-06-15] MEDS ORDERED: SUMAtriptan 25 MG tablet PO ONE (21:15)
[2021-06-15 21:36] VITALS: BP 135/85
== END 2021-06-15 21:37 | disposition home or self-care (01) ==
LOC: ER 13:54 → ED HOLD 17:55 → UNDOADMIN 17:55 → UNDODISIN 21:38
DX: U07.1 COVID-19 (principal); E87.1 Hypo-osmolality and hyponatremia; R50.9 Fever, unspecified; R51.9 Headache, unspecified; R05 Cough; F41.9 Anxiety disorder, unspecified; F32.9 Major depressive disorder, single episode, unspecified; Z86.69 Personal history of other diseases of the nervous system and sense organs; Z72.89 Other problems related to lifestyle; Z79.2 Long term (current) use of antibiotics; Z79.899 Other long term (current) drug therapy
CPT/HCPCS: 36415; 71045; 80048; 80053; 81001; 83605; 83735; 84145; 85007; 85025; 87040; 87635; 99285; C9803; M0243; Q0244; G0378; J7120

== ENCOUNTER 2022-04-06 21:42 | Emergency (ER) | payer BC ==
[~2022-04-06] VITALS: Ht 167.6 cm; Wt 109.1 kg
[~2022-04-06 21:42] MED LIST changes: +ALBU8.5H17 IH; -CHOL200052 PO; -DULO60CA34 PO; +DULO60CA65 PO; +HYDR25TA4 PO; +LINA145C PO; -LORA1TAB PO; +LOSA100T57 PO; +METO-395 PO; +METR60GE4 TOP; -OXYC10TA47 PO; -PROC-8 PO; +RIZA10TA27 SL; +TERB250T89 PO
[2022-04-06] MEDS ORDERED: methylPREDNISolone sod succ 125mg/2ml vial IV ONE (22:20)
[2022-04-06 22:21] VITALS: BP 104/80
[2022-04-06] MEDS ORDERED: HYDROmorphone 1 mg/ml syringe IV ONE (22:30)
[2022-04-06] MEDS ORDERED: ondansetron/PF 4mg/2ml inj IV ONE (22:30)
[2022-04-06 22:45] LABS: BASOPHILS # (AUTO) 0.1 X10'3 (0-0.2); BASOPHILS % (AUTO) 1.5 % (0-1); EOSINOPHILS # (AUTO) 0.8 X10'3 (0-0.9); EOSINOPHILS % (AUTO) 7.6 % (0-6); HEMATOCRIT 41.8 % (35.0-45.0); HEMOGLOBIN 14.5 g/dl (12.0-16.0); LYMPHOCYTES # (AUTO) 2.1 X10'3 (1.1-4.8); MEAN CORPUSCULAR HEMOGLOBIN 29.9 PG (27.0-31.0); MEAN CORPUSCULAR HGB CONC 34.7 g/dL (33.0-36.5); MEAN CORPUSCULAR VOLUME 86.3 FL (78-98); MEAN PLATELET VOLUME 9.2 FL (7.4-10.4); MONOCYTES # (AUTO) 0.9 X10'3 (0-0.9); MONOCYTES % (AUTO) 8.5 % (2-12); NEUTROPHILS # (AUTO) 6.1 X10'3 (1.8-7.7); NEUTROPHILS % (AUTO) 61.4 % (42-75); PLATELET COUNT 368 X10'3 (140-440); RED BLOOD COUNT 4.85 X10'6 (4.20-5.60); RED CELL DISTRIBUTION WIDTH 12.1 % (11.5-14.5)
[2022-04-06 22:58] LABS: ALANINE AMINOTRANSFERASE 55 U/L (12-78); ALBUMIN 3.5 G/DL (3.4-5.0); ALBUMIN/GLOBULIN RATIO 0.9 (1.1-1.5); ALKALINE PHOSPHATASE 111 IU/L (46-116); ANION GAP 11 (8-16); ASPARTATE AMINO TRANSFERASE 27 U/L (10-37); BILIRUBIN,TOTAL 0.2 MG/DL (0.1-1.0); BLOOD UREA NITROGEN 15 MG/DL (7-18); BUN/CREATININE RATIO 18.1 (6.6-38.0); CALCIUM 8.7 MG/DL (8.5-10.1); CHLORIDE 101 MMOL/L (99-107); CREATININE 0.83 MG/DL (0.40-0.90); GLUCOSE 140 MG/DL (70-104); LIPASE < 50 U/L (73-393); POTASSIUM 3.4 MMOL/L (3.5-5.1); SODIUM 139 MMOL/L (135-145); TOTAL PROTEIN 7.3 G/DL (6.4-8.2); eGFR 73 ML/MIN
== END 2022-04-07 03:31 | disposition left against medical advice (07) ==
LOC: ER 21:44
DX: R52 Pain, unspecified (principal); Z53.21 Procedure and treatment not carried out due to patient leaving prior to being seen by health care provider
CPT/HCPCS: 36415; 80053; 83690; 83735; 85025

== ENCOUNTER 2023-03-14 13:45 | Inpatient (IN) | payer BC ==
[~2023-03-14] VITALS: Ht 170.2 cm; Wt 111.0 kg
[~2023-03-14 13:45] MED LIST changes: -LOSA100T57 PO; +LOSA100T58 PO; +RIZA-5 SL; -RIZA10TA27 SL
[2023-03-14] MEDS ORDERED: normal saline 1000ML IV soln IVB ONE ×2 (15:05)
[2023-03-14] MEDS ORDERED: diphenhydrAMINE 50 mg/ml inj IV ONE (15:05)
[2023-03-14] MEDS ORDERED: metoclopramide 5 mg/ml inj IV ONE (15:05)
[2023-03-14] MEDS ORDERED: methylPREDNISolone sod succ 125mg/2ml vial IV ONE (15:05)
[2023-03-14] MEDS ORDERED: LORazepam 2 mg/ml vial IV ONE ×2 (15:05→17:40)
[2023-03-14] MEDS ORDERED: ketorolac trometh inj. 60 MG/2 ML VIAL IM ONE (15:10)
[2023-03-14 15:27] LABS: BASOPHILS # (AUTO) 0.1 X10'3 (0-0.2); BASOPHILS % (AUTO) 0.7 % (0-1); EOSINOPHILS # (AUTO) 0.3 X10'3 (0-0.9); EOSINOPHILS % (AUTO) 2.4 % (0-6); HEMATOCRIT 43.9 % (35.0-45.0); HEMOGLOBIN 14.9 g/dl (12.0-16.0); LYMPHOCYTES # (AUTO) 1.3 X10'3 (1.1-4.8); MEAN CORPUSCULAR HEMOGLOBIN 29.3 PG (27.0-31.0); MEAN CORPUSCULAR VOLUME 86.2 FL (78-98); MEAN PLATELET VOLUME 9.1 FL (7.4-10.4); MONOCYTES # (AUTO) 0.4 X10'3 (0-0.9); MONOCYTES % (AUTO) 3.8 % (2-12); NEUTROPHILS % (AUTO) 81.1 % (42-75); PLATELET COUNT 331 X10'3 (140-440); RED BLOOD COUNT 5.09 X10'6 (4.20-5.60); RED CELL DISTRIBUTION WIDTH 12.6 % (11.5-14.5); WHITE BLOOD COUNT 11.2 X10'3 (4.5-11.0)
[2023-03-14 15:40] LABS: ALANINE AMINOTRANSFERASE 55 U/L (12-78); ALBUMIN 3.8 G/DL (3.4-5.0); ALBUMIN/GLOBULIN RATIO 1.1 (1.1-1.5); ALKALINE PHOSPHATASE 92 IU/L (46-116); ANION GAP 9 (8-16); ASPARTATE AMINO TRANSFERASE 24 U/L (10-37); BILIRUBIN,TOTAL 0.3 MG/DL (0.1-1.0); BLOOD UREA NITROGEN 15 MG/DL (7-18); BUN/CREATININE RATIO 16.9 (10.0-20.0); CALCIUM 9.5 MG/DL (8.5-10.1); CHLORIDE 101 MMOL/L (99-107); CREATININE 0.89 MG/DL (0.40-0.90); GLUCOSE 121 MG/DL (70-104); LIPASE 50 U/L (73-393); POTASSIUM 3.8 MMOL/L (3.5-5.1); SODIUM 138 MMOL/L (135-145); TOTAL CARBON DIOXIDE 27.6 MMOL/L (24-32); TOTAL PROTEIN 7.2 G/DL (6.4-8.2); eGFR 67 ML/MIN
--- NOTE | 2023-03-14 16:16 | NUR ---
PHARMACY NOTIFIED TO PREPARE SOLUMEDROL AND BRING IT TO ED.
[2023-03-14] MEDS ORDERED: methylPREDNISolone SOD SUCC 1000 MG in D5W 50ml IVPB (58ML) IV ONE (16:20)
[2023-03-14] MEDS ORDERED: HYDROmorphone 1 mg/ml syringe IV ONE (16:30)
[2023-03-14 16:46] LABS: MAGNESIUM 2.1 MG/DL (1.5-2.4); PHOSPHORUS 3.8 MG/DL (2.3-4.5)
[2023-03-14] MEDS ORDERED: acetaminophen 1,000mg/100ml IV 100 ML IV STA (17:37)
[2023-03-14] MEDS ORDERED: HYDROmorphone inj. 0.5 MG/0.5 ML DISP.SYRIN IV ONE (17:40)
[2023-03-14 18:51] LABS: CLARITY,URINE CLEAR (Clear); COLOR,URINE YELLOW (Yellow); GLUCOSE, URINE NEGATIVE (Neg); KETONES,URINE NEGATIVE (Neg); LEUKOCYTE ESTERASE ,URINE NEGATIVE (Neg); NITRITES, URINE NEGATIVE (Neg); OCCULT BLOOD,URINE NEGATIVE (Neg); PH,URINE 6.5 (4.8-8.0); PROTEIN,URINE NEGATIVE (Neg); UROBILINOGEN,URINE 0.2 E.U/dL (0.2-1.0)
[2023-03-14 19:05] LABS: UA COLLECTION TYPE CLN CATCH MIDSTREAM
[2023-03-14] MEDS ORDERED: PCA WASTE DOCUMENTATION 1 MG ML MC PRN (20:30)
[2023-03-14] MEDS ORDERED: magnesium 4gm in 100ml NS 100 ML IV PRN (20:30)
[2023-03-14] MEDS ORDERED: magnesium hydroxide 30ml (MOM) UD suspension PO PRN (20:30)
[2023-03-14] MEDS ORDERED: potassium Cl 40MEQ/1/2NS 520ml 520 ML IV PRN (20:30)
[2023-03-14] MEDS ORDERED: magnesium 2GM in 50ml NS 50 ML IV PRN (20:30)
[2023-03-14] MEDS ORDERED: potassium Cl 20 mEq SR tablet PO PRN ×2 (20:30)
[2023-03-14] MEDS ORDERED: magnesium Cl slow-release 64mg tablet PO PRN (20:30)
[2023-03-14] MEDS ORDERED: ondansetron/PF 4mg/2ml inj IV PRN (20:30)
[2023-03-14] MEDS ORDERED: naloxone 0.4 mg/ml inj IV PRN (20:30)
[2023-03-14] MEDS ORDERED: HYDROmorphone inj. 0.5 MG/0.5 ML DISP.SYRIN IV PRN (20:30)
[2023-03-14] MEDS ORDERED: mag hydrox/Alum hydrox/simeth 30ml oral suspension PO PRN (20:30)
[2023-03-14] MEDS ORDERED: acetaminophen 325mg tablet PO PRN (20:30)
[2023-03-14] MEDS ORDERED: SUMA25TA9 PO (21:22)
[2023-03-14] MEDS ORDERED: SUMAtriptan 25 MG tablet PO PRN (21:35)
[2023-03-14] MEDS ORDERED: albuterol 2.5 MG/3 ML nebule NEB PRN (21:55)
[2023-03-14 22:00] VITALS: BP 122/73
--- NOTE | 2023-03-14 22:00 | NUR ---
PT ARRIVED FROM ER. PT AMBULATED TO USE BATHROOM BEFORE GOT INTO BED. PT HAS BEEN ORIENTED TO THE ROOM. VSS. RECEIVED REPORT FROM ER,RN PRIOR TO PT'S ARRIVAL.
[2023-03-14] MEDS: HYDROmorph/NS 0.2 mg/ml PCA 100 ML IV SCH ×2 (22:39→22:40)
[2023-03-15] MEDS: HYDROmorph/NS 0.2 mg/ml PCA 100 ML IV SCH ×7 (01:00→13:00)
[2023-03-15] MEDS ORDERED: diphenhydrAMINE 25mg capsule PO PRN (01:05)
[2023-03-15] MEDS: diphenhydrAMINE 25mg capsule PO PRN ×2 (03:44→11:42)
[2023-03-15 04:50] LABS: BASOPHILS % (AUTO) 0.2 % (0-1); EOSINOPHILS % (AUTO) 0 % (0-6); HEMATOCRIT 41.9 % (35.0-45.0); LYMPHOCYTES # (AUTO) 1.2 X10'3 (1.1-4.8); LYMPHOCYTES % (AUTO) 7.5 % (21-51); MEAN CORPUSCULAR HGB CONC 33.3 g/dL (33.0-36.5); MEAN CORPUSCULAR VOLUME 87.2 FL (78-98); MEAN PLATELET VOLUME 9.6 FL (7.4-10.4); MONOCYTES # (AUTO) 0.1 X10'3 (0-0.9); MONOCYTES % (AUTO) 0.6 % (2-12); NEUTROPHILS # (AUTO) 14.6 X10'3 (1.8-7.7); NEUTROPHILS % (AUTO) 91.7 % (42-75); PLATELET COUNT 313 X10'3 (140-440); RED BLOOD COUNT 4.81 X10'6 (4.20-5.60); RED CELL DISTRIBUTION WIDTH 12.4 % (11.5-14.5); WHITE BLOOD COUNT 15.9 X10'3 (4.5-11.0)
[2023-03-15 04:58] LABS: ALANINE AMINOTRANSFERASE 49 U/L (12-78); ALBUMIN 3.5 G/DL (3.4-5.0); ALBUMIN/GLOBULIN RATIO 1.1 (1.1-1.5); ALKALINE PHOSPHATASE 79 IU/L (46-116); ANION GAP 11 (8-16); ASPARTATE AMINO TRANSFERASE 21 U/L (10-37); BILIRUBIN,TOTAL 0.3 MG/DL (0.1-1.0); BLOOD UREA NITROGEN 16 MG/DL (7-18); CALCIUM 8.9 MG/DL (8.5-10.1); CHLORIDE 102 MMOL/L (99-107); CREATININE 0.84 MG/DL (0.40-0.90); GLUCOSE 165 MG/DL (70-104); POTASSIUM 3.9 MMOL/L (3.5-5.1); SODIUM 139 MMOL/L (135-145); TOTAL CARBON DIOXIDE 26.5 MMOL/L (24-32); TOTAL PROTEIN 6.8 G/DL (6.4-8.2); eGFR 72 ML/MIN
[2023-03-15 06:00] VITALS: BP 123/66
--- NOTE | 2023-03-15 06:28 | NUR ---
Problems reprioritized. Patient report given, questions answered & plan of care reviewed with FABIANA RO.
[2023-03-15] MEDS ORDERED: LINACLOTIDE PO SCH (08:00)
[2023-03-15] MEDS: K and/or MAG REPLACEMENT MC SCH ×2 (08:00→19:45)
[2023-03-15] MEDS: duloxetine 30mg CAPSULE.DR PO SCH (08:16)
[2023-03-15] MEDS: docusate sod 100mg capsule PO SCH ×2 (08:17→19:33)
[2023-03-15] MEDS: HYDROchlorothiazide 25mg tablet PO SCH (08:17)
[2023-03-15] MEDS: heparin, porcine 5000 units/ml vial SQ SCH ×2 (08:18→19:35)
[2023-03-15] MEDS: losartan 50mg tablet PO SCH (08:22)
[2023-03-15] MEDS ORDERED: thyroid, pork 30mg tablet PO SCH (08:23)
[2023-03-15 10:00] VITALS: BP 135/69
[2023-03-15] MEDS ORDERED: HYDROmorphone 1 mg/ml syringe IV PRN (15:20)
[2023-03-15] MEDS ORDERED: HYDROcodone/acetaminophen 5mg/325mg tablet PO PRN (15:20)
[2023-03-15] MEDS ORDERED: HYDROmorphone inj. 0.5 MG/0.5 ML DISP.SYRIN IV PRN (15:20)
[2023-03-15] MEDS ORDERED: methylPREDNISolone sod succ 125mg/2ml vial IV ONE (15:20)
[2023-03-15] MEDS ORDERED: HYDROcodone/acetaminophen 10/325mg tab PO PRN (15:20)
--- NOTE | 2023-03-15 16:33 | NUR ---
Page Sent PAGER ID: [phone] MESSAGE: [phone] heaven, i am unbale to give pt the 1000 mg push of solumedrol. pharmacy says it needs to be ordered as a IV bag no tpush. thanks olga [phone]
[2023-03-15] MEDS ORDERED: METHYLPREDNISOLONE SOD SUCC IV ONE (16:40)
[2023-03-15] MEDS ORDERED: DEXTROSE 5% IV ONE (16:40)
[2023-03-15] MEDS ORDERED: METHYLPREDNISOLONE SOD SUC IV SCH (16:40)
[2023-03-15] MEDS ORDERED: DEXTROSE 5% IV SCH (16:40)
[2023-03-15] MEDS ORDERED: WATER IV SCH (16:40)
[2023-03-15] MEDS ORDERED: WATER IV ONE (16:40)
[2023-03-15 18:00] VITALS: BP 131/79
[2023-03-15] MEDS: methylPREDNISolone SOD SUCC 1000 MG in D5W 50ml IVPB (58ML) IV SCH (18:04)
--- NOTE | 2023-03-15 18:29 | NUR ---
Problems reprioritized. Patient report given, questions answered & plan of care reviewed with tom bray.
[2023-03-15 22:00] VITALS: BP 139/79
[2023-03-16] MEDS: LORazepam 1 MG tablet PO SCH ×2 (02:34→09:00)
[2023-03-16 06:00] VITALS: BP 120/67
--- NOTE | 2023-03-16 06:12 | NUR ---
Problems reprioritized. Patient report given, questions answered & plan of care reviewed with FABIANA RO.
[2023-03-16 06:14] LABS: BASOPHILS % (AUTO) 0.1 % (0-1); EOSINOPHILS % (AUTO) 0 % (0-6); HEMATOCRIT 41.5 % (35.0-45.0); HEMOGLOBIN 13.9 g/dl (12.0-16.0); LYMPHOCYTES # (AUTO) 0.9 X10'3 (1.1-4.8); LYMPHOCYTES % (AUTO) 4.3 % (21-51); MEAN CORPUSCULAR HEMOGLOBIN 29.4 PG (27.0-31.0); MEAN CORPUSCULAR HGB CONC 33.6 g/dL (33.0-36.5); MEAN CORPUSCULAR VOLUME 87.4 FL (78-98); MEAN PLATELET VOLUME 9.5 FL (7.4-10.4); MONOCYTES # (AUTO) 0.9 X10'3 (0-0.9); MONOCYTES % (AUTO) 4.1 % (2-12); NEUTROPHILS # (AUTO) 19.7 X10'3 (1.8-7.7); NEUTROPHILS % (AUTO) 91.5 % (42-75); PLATELET COUNT 338 X10'3 (140-440); RED BLOOD COUNT 4.75 X10'6 (4.20-5.60); RED CELL DISTRIBUTION WIDTH 12.5 % (11.5-14.5); WHITE BLOOD COUNT 21.5 X10'3 (4.5-11.0)
--- NOTE | 2023-03-16 06:24 | NUR ---
Patient in room ORTHO 4017. I have received report from KALPESH JUNG and had the opportunity to ask questions and assume patient care.
[2023-03-16 06:34] LABS: ALANINE AMINOTRANSFERASE 42 U/L (12-78); ALBUMIN 3.4 G/DL (3.4-5.0); ALKALINE PHOSPHATASE 95 IU/L (46-116); ANION GAP 7 (8-16); ASPARTATE AMINO TRANSFERASE 15 U/L (10-37); BILIRUBIN,TOTAL 0.2 MG/DL (0.1-1.0); BLOOD UREA NITROGEN 18 MG/DL (7-18); BUN/CREATININE RATIO 22.2 (10.0-20.0); CALCIUM 9.2 MG/DL (8.5-10.1); CHLORIDE 103 MMOL/L (99-107); CREATININE 0.81 MG/DL (0.40-0.90); GLUCOSE 197 MG/DL (70-104); MAGNESIUM 2.1 MG/DL (1.5-2.4); POTASSIUM 3.5 MMOL/L (3.5-5.1); SODIUM 139 MMOL/L (135-145); TOTAL CARBON DIOXIDE 29.5 MMOL/L (24-32); TOTAL PROTEIN 6.7 G/DL (6.4-8.2); eGFR 75 ML/MIN
[2023-03-16] MEDS: K and/or MAG REPLACEMENT MC SCH (08:00)
[2023-03-16] MEDS ORDERED: methylPREDNISolone sod succ 125mg/2ml vial IV SCH (08:00)
[2023-03-16] MEDS: duloxetine 30mg CAPSULE.DR PO SCH (09:00)
[2023-03-16] MEDS: methylPREDNISolone SOD SUCC 1000 MG in D5W 50ml IVPB (58ML) IV SCH (09:00)
[2023-03-16] MEDS: HYDROchlorothiazide 25mg tablet PO SCH (09:01)
[2023-03-16] MEDS: docusate sod 100mg capsule PO SCH (09:01)
[2023-03-16] MEDS: heparin, porcine 5000 units/ml vial SQ SCH (09:02)
[2023-03-16] MEDS: losartan 50mg tablet PO SCH (09:04)
[2023-03-16 10:00] VITALS: BP 130/59
--- NOTE | 2023-03-16 13:25 | NUR ---
PT STABLE FOR DC, IV IS DC AND CANNULA IS INTACT, ALL BELONGINGS TAKEN WITH PT, ALL DC INFO GONE OVER AND SIGNED. NO MEDS IN PHARMACY, PT WANTED TO WALK SO SHE WAS WALKED TO LOBBY AND LEFT IN A PRIVATE VEHICLE.
== END 2023-03-16 11:50 | disposition home or self-care (01) | DRG 60 ==
LOC: ER 13:45 → ED HOLD 20:29 → ORTHO 4S 21:48
PROVIDERS: ADMIT Internal Medicine; ATTEND Family Medicine
DX: G35 Multiple sclerosis (principal); F32.A Depression, unspecified; F41.9 Anxiety disorder, unspecified; G89.29 Other chronic pain; I10 Essential (primary) hypertension; E03.9 Hypothyroidism, unspecified; G43.909 Migraine, unspecified, not intractable, without status migrainosus; Z79.899 Other long term (current) drug therapy; Z82.49 Family history of ischemic heart disease and other diseases of the circulatory system; Z83.3 Family history of diabetes mellitus
CPT/HCPCS: 36415; 80053; 81003; 83690; 83735; 84100; 84443; 85025; 87081; 97161; 97530; 99285; G0378; J0131; J1170; J1200; J1644; J2060; J2765; J2930; J7030; J7060; Q0163

== ENCOUNTER 2024-11-17 16:23 | Emergency (ER) | payer BC ==
[~2024-11-17] VITALS: Ht 170.2 cm; Wt 102.3 kg
[~2024-11-17 16:23] MED LIST changes: -DOXY-224 PO; -LINA145C PO; -METO-395 PO; -METR60GE4 TOP; -RIZA-5 SL; +SUMA25TA9 PO; -TERB250T89 PO
[2024-11-17 17:44] LABS: BASOPHILS # (AUTO) 0.3 X10'3 (0-0.2); BASOPHILS % (AUTO) 3.3 % (0-1); EOSINOPHILS # (AUTO) 0.5 X10'3 (0-0.9); EOSINOPHILS % (AUTO) 6.4 % (0-6); HEMATOCRIT 41.5 % (35.0-45.0); HEMOGLOBIN 14.4 g/dl (12.0-16.0); LYMPHOCYTES # (AUTO) 2.7 X10'3 (1.1-4.8); LYMPHOCYTES % (AUTO) 32.4 % (21-51); MEAN CORPUSCULAR HEMOGLOBIN 30.1 PG (27.0-31.0); MEAN CORPUSCULAR HGB CONC 34.7 g/dL (33.0-36.5); MEAN CORPUSCULAR VOLUME 86.9 FL (78-98); MEAN PLATELET VOLUME 9.8 FL (7.4-10.4); MONOCYTES % (AUTO) 11.4 % (2-12); NEUTROPHILS # (AUTO) 3.9 X10'3 (1.8-7.7); NEUTROPHILS % (AUTO) 46.5 % (42-75); PLATELET COUNT 310 X10'3 (140-440); RED BLOOD COUNT 4.77 X10'6 (4.20-5.60); RED CELL DISTRIBUTION WIDTH 12.5 % (11.5-14.5); WHITE BLOOD COUNT 8.3 X10'3 (4.5-11.0)
[2024-11-17 17:54] LABS: ALANINE AMINOTRANSFERASE 53 U/L (12-78); ALBUMIN 3.8 G/DL (3.4-5.0); ALBUMIN/GLOBULIN RATIO 1.2 (1.1-1.5); ALKALINE PHOSPHATASE 110 IU/L (46-116); ANION GAP 4 (8-16); ASPARTATE AMINO TRANSFERASE 25 U/L (10-37); BILIRUBIN,TOTAL 0.2 MG/DL (0.1-1.0); BLOOD UREA NITROGEN 12 MG/DL (7-18); BUN/CREATININE RATIO 20.7 (10.0-20.0); CALCIUM 9.2 MG/DL (8.5-10.1); CHLORIDE 104 MMOL/L (99-107); CREATININE 0.58 MG/DL (0.40-0.90); GLUCOSE 96 MG/DL (70-104); POTASSIUM 3.8 MMOL/L (3.5-5.1); SODIUM 141 MMOL/L (135-145); TOTAL CARBON DIOXIDE 32.7 MMOL/L (24-32); eCRCL 110 ML/MIN; eGFR > 90 ML/MIN
[2024-11-17 18:04] LABS: PRO BRAIN NATRIURETIC PEPTIDE < 30 PG/ML (0-125)
[2024-11-17 18:10] VITALS: TEMP 97.2
[2024-11-17 18:32] VITALS: BP 122/82; PULSE 75; RESP 16; O2SAT 98
== END 2024-11-17 18:36 | disposition home or self-care (01) ==
LOC: ER 16:24
DX: R07.89 Other chest pain (principal); E11.9 Type 2 diabetes mellitus without complications; F41.9 Anxiety disorder, unspecified; F32.A Depression, unspecified; Z79.899 Other long term (current) drug therapy; Z72.89 Other problems related to lifestyle
CPT/HCPCS: 36415; 71045; 80053; 83880; 84484; 85025; 93005; 99285